=== PATIENT | male | born 1975 | race Caucasian/White ===

== ENCOUNTER → 2020-12-15 | Outpatient (CLI) | payer BC ==
[2020-12-15 14:58] LABS: HEMOGLOBIN 15.4 gm/dl (14.0-17.5); RED BLOOD COUNT 4.81 M/UL (4.20-5.50); WHITE BLOOD COUNT 12.6 K/UL (4.5-11.0)
[2020-12-15 15:56] LABS: BUN/CREATININE RATIO 16 (0-10)
[2020-12-16 08:14] LABS: THYROXINE (T4) 4.9 ug/dL (4.5-12.0)
[2020-12-16 09:14] LABS: VITAMIN D, 25-HYDROXY 11.5 ng/mL (30.0-100.0)
== END ==
LOC: LAB 12:21
PROVIDERS: Nurse Practitioner
DX: K85.90 Acute pancreatitis without necrosis or infection, unspecified (principal); E05.90 Thyrotoxicosis, unspecified without thyrotoxic crisis or storm; E55.9 Vitamin D deficiency, unspecified; E11.9 Type 2 diabetes mellitus without complications
CPT/HCPCS: 36415; 80053; 80061; 81001; 82150; 83036; 83690; 84436; 84443; 84480; 85025

== ENCOUNTER → 2022-03-13 | Outpatient (CLI) | payer BC ==
[2022-03-13 13:45] LABS: HEMOGLOBIN 13.8 gm/dl (14.0-17.5); RED BLOOD COUNT 4.68 M/UL (4.20-5.50); WHITE BLOOD COUNT 10.4 K/UL (4.5-11.0)
[2022-03-13 21:37] LABS: BUN/CREATININE RATIO 14 (0-10)
[2022-03-14 07:11] LABS: VITAMIN D, 25-HYDROXY 33.1 ng/mL (30.0-100.0)
[2022-03-14 08:19] LABS: THYROXINE (T4) 6.2 ug/dL (4.5-12.0)
== END ==
LOC: LAB 12:18
PROVIDERS: Nurse Practitioner
DX: E55.9 Vitamin D deficiency, unspecified (principal); E78.5 Hyperlipidemia, unspecified; E11.9 Type 2 diabetes mellitus without complications; R53.83 Other fatigue
CPT/HCPCS: 36415; 80053; 80061; 81001; 83036; 84436; 84443; 84480; 85025